=== PATIENT | female | born 1965 | race Caucasian/White ===

== ENCOUNTER 2019-09-26 07:42 | Emergency (ER) | payer BC, OTHER ==
--- NOTE | 2019-09-26 08:02 | EDM.PDOC ---
ED HPI GENERAL MEDICAL PROBLEM - General Chief Complaint: Headache Stated Complaint: VOMITING AND HEADACHE Time Seen by Provider: 09/26/19 07:53 Source of Information: Reports: Patient History Limitations: Reports: No Limitations - History of Present Illness Onset: Gradual Onset Date: 09/23/19 Duration: Day(s):, Getting Worse Location: Reports: Head, Generalized (nausea and vomitng. ) Quality: Reports: Ache (Lt frontal parietal headache. ) Severity: Moderate Improves with: Reports: None Worsens with: Reports: Movement ( question of vertigo symptoms. ) Context: Denies: Activity, Exercise, Lifting, Sick Contact, Trauma, Other Associated Symptoms: Reports: Diaphoresis, Headaches, Loss of Appetite, Malaise , Nausea/Vomiting (for the last 3 days. ). 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 did not take meds today. ) Headache Pain Score (Numeric/FACES): 8 - Related Data Allergies Allergy/AdvReac Type Severity Reaction Status Date / Time codeine Allergy Dizziness Verified 09/26/19 07:52 Home Meds: Home Meds ClonazePAM [KlonoPIN] 1 mg PO QPM 09/26/19 [History] Desvenlafaxine [Desvenlafaxine ER] 100 mg PO DAILY 09/26/19 [History] Levothyroxine [Synthroid] 50 mcg PO DAILY 09/26/19 [History] [place] Carbonate 300 mg PO BID 09/26/19 [History] Lurasidone HCl [Latuda] 80 mg PO DAILY 09/26/19 [History] Ondansetron [Zofran] 4 mg BUCCAL Q6H PRN #6 tab 09/26/19 [Rx] Prazosin HCl [Prazosin] 6 mg PO QPM 09/26/19 [History] Propranolol [Inderal] 20 mg PO DAILY 09/26/19 [History] Rosuvastatin [Crestor] 10 mg PO DAILY 09/26/19 [History] lamoTRIgine [Lamotrigine] 300 mg PO DAILY 09/26/19 [History] traZODone HCl [Trazodone HCl] 100 mg PO QPM 09/26/19 [History] Past Medical History Cardiovascular History: Reports: High Cholesterol, Hypertension Psychiatric History: Reports: Anxiety, Bipolar, Depression, Other (See Below) ( Insomnia) Endocrine/Metabolic History: Reports: Hypothyroidism (On supplementation.), Obesity/BMI 30+ Social & Family History - Living Situation & Occupation Living situation: Reports: Occupation: Employed ED ROS GENERAL - Review of Systems Review Of Systems: See Below Constitutional: Reports: Malaise, Weakness, Fatigue, Decreased Appetite. Denies : Fever, Chills, Weight Loss, Weight Gain HEENT: Reports: No Symptoms Respiratory: Reports: No Symptoms Cardiovascular: Reports: Blood Pressure Problem, Lightheadedness. Denies: Chest Pain, Claudication, Dyspnea on Exertion, Edema, Orthopnea, Palpitations Endocrine: Reports: Fatigue GI/Abdominal: Reports: Decreased Appetite, Nausea, Vomiting. Denies: Hematemesis (And vomiting of bilious material) : Reports: Other (It is darker than normal.) Musculoskeletal: Reports: Back Pain Skin: Reports: No Symptoms (Occasional problems with low back pain) Neurological: Reports: Dizziness, Headache, Difficulty Walking, Weakness (And reports that she seemed to be a little bit ataxic with walking this morning.). Denies: Confusion, Numbness, Paresthesia, Pre-Existing Deficit, Seizure, Syncope , Tingling, Tremors, Trouble Speaking Psychiatric: Reports: Anxiety, Depression. Denies: Confusion, Cravings, Hallucinations, Homicidal Ideation, Mood Lability, Suicidal Ideation Hematologic/Lymphatic: Reports: No Symptoms Immunologic: Reports: No Symptoms - Physical Exam Exam: See Below Exam Limited By: No Limitations General Appearance: Alert, WD/WN, No Apparent Distress, Other Eye Exam: Bilateral Eye: Normal Inspection, PERRL (No nystagmus.) Throat/Mouth: Normal Inspection, Normal Lips, Normal Teeth, Normal Oropharynx Head Exam: Atraumatic, Normocephalic Neck: Normal Inspection, Supple, Non-Tender, Full Range of Motion. No: Carotid Bruit, Lymphadenopathy (L), Lymphadenopathy (R) Respiratory/Chest: No Respiratory Distress, Lungs Clear, Normal Breath Sounds, Chest Non-Tender Cardiovascular: Normal Peripheral Pulses, Regular Rate, Rhythm, No Edema, No Gallop, No Murmur, No Rub GI/Abdominal: Normal Bowel Sounds, Soft, Non-Tender, No Organomegaly, No Abnormal Bruit, No Mass, Pelvis Stable, Other (Mildly obese.) Neuro Exam (Abbreviated): Alert, Oriented, CN II-XII Intact, Normal Cognition, Normal Reflexes, No Motor/Sensory Deficits DTR: 1+: Achilles (R), Achilles (L), 2+: Bicep (R), Bicep (L), Patella (R), Patella (L) Back Exam: Normal Inspection Extremities: Normal Inspection, Normal Range of Motion, Non-Tender, No Pedal Edema Psychiatric: Flat Affect Skin Exam: Warm, Dry, Intact, Normal Color, No Rash Course - Vital Signs Last Recorded V/S: Last Vital Signs Temp 36.3 C 09/26/19 07:48 Pulse 95 09/26/19 07:48 Resp 12 09/26/19 07:48 BP 152/67 H 09/26/19 07:48 Pulse Ox 100 09/26/19 07:48 - Orders/Labs/Meds Orders: Active Orders 24 hr Category Date Time Status LITHIUM [REF] Stat Lab 09/26/19 08:05 Received URINALYSIS W/MICROSCOPIC [UA W/MICROSCOPIC] [URIN] Stat Lab 09/26/19 09:50 Received Dextrose 5%-Lactated Ringers 1,000 ml Med 09/26/19 08:15 Active IV ASDIRECTED Ketorolac [Toradol] Med 09/26/19 10:00 Active 30 mg IVPUSH ONETIME Medication Orders Dextrose/Lactated Ringer's (Dextrose 5%-Lactated Ringers) 1,000 mls @ 999 mls/ hr IV ASDIRECTED LILLIAM Last Admin: 09/26/19 08:11 Dose: 999 mls/hr Ketorolac Tromethamine (Toradol) 30 mg IVPUSH ONETIME LILLIAM Last Admin: 09/26/19 09:59 Dose: 30 mg Labs: Laboratory Tests 09/26/19 09/26/19 09/26/19 Range/Units 08:05 08:05 08:05 WBC 8.01 (3.98-10.04) K/mm3 RBC 4.72 (3.98-5.22) M/mm3 Hgb 13.2 (11.2-15.7) gm/dl Hct 40.8 (34.1-44.9) % MCV 86.4 (79.4-94.8) fl MCH 28.0 (25.6-32.2) pg MCHC 32.4 (32.2-35.5) g/dl RDW Std Deviation 37.9 (36.4-46.3) fL Plt Count 323 (182-369) K/mm3 MPV 9.9 (9.4-12.3) fl Neut % (Auto) 66.0 (34.0-71.1) % Lymph % (Auto) 23.6 (19.3-51.7) % [place] % (Auto) 8.1 (4.7-12.5) % Eos % (Auto) 1.7 (0.7-5.8) Baso % (Auto) 0.5 (0.1-1.2) % Neut # (Auto) 5.28 (1.56-6.13) K/mm3 Lymph # (Auto) 1.89 (1.18-3.74) K/mm3 [place] # (Auto) 0.65 H (0.24-0.36) K/mm3 Eos # (Auto) 0.14 (0.04-0.36) K/mm3 Baso # (Auto) 0.04 (0.01-0.08) K/mm3 Sodium 141 (136-145) mEq/L Potassium 3.8 (3.5-5.1) mEq/L Chloride 104 (98-107) mEq/L Carbon Dioxide 28 (21-32) mEq/L Anion Gap 12.8 (5-15) BUN 11 (7-18) mg/dL Creatinine 0.9 (0.55-1.02) mg/dL Est Cr Clr Drug Dosing 59.11 mL/min Estimated GFR (MDRD) > 60 (>60) mL/min BUN/Creatinine Ratio 12.2 L (14-18) Glucose 116 H (74-106) mg/dL Calcium 10.6 H (8.5-10.1) mg/dL Magnesium 2.0 (1.8-2.4) mg/dl Total Bilirubin 0.6 (0.2-1.0) mg/dL AST 19 (15-37) U/L ALT 30 (14-59) U/L Alkaline Phosphatase 67 (46-116) U/L C-Reactive Protein 1.1 H* (<1.0) mg/dL Total Protein 7.9 (6.4-8.2) g/dl Albumin 3.8 (3.4-5.0) g/dl Globulin 4.1 gm/dL Albumin/Globulin Ratio 0.9 L (1-2) TSH 3rd Generation 0.010 L (0.358-3.74) uIU/mL Meds: Medications Generic Name Dose Route Start Last Admin Trade Name Freq PRN Reason Stop Dose Admin Dextrose/Lactated Ringer's 1,000 mls @ 999 mls/hr 09/26/19 08:15 09/26/19 08: 11 Dextrose 5%-Lactated Ringers IV 999 mls/hr ASDIRECTED LILLIAM Administration Ketorolac Tromethamine 30 mg 09/26/19 10:00 09/26/19 09:59 Toradol IVPUSH 30 mg ONETIME LILLIAM Administration Discontinued Medications Generic Name Dose Route Start Last Admin Trade Name Freq PRN Reason Stop Dose Admin Diphenhydramine HCl 25 mg 09/26/19 09:47 09/26/19 09:54 Benadryl IVPUSH 09/26/19 09:48 25 mg ONETIME ONE Administration Hydromorphone HCl 0.5 mg 09/26/19 08:05 09/26/19 08:19 Dilaudid IVPUSH 09/26/19 08:06 0.5 mg ONETIME ONE Administration Hydromorphone HCl 0.5 mg 09/26/19 09:01 09/26/19 09:24 Dilaudid IVPUSH 09/26/19 09:02 0.5 mg ONETIME ONE Administration Promethazine HCl 25 mg/ Sodium 51 mls @ 100 mls/hr 09/26/19 08:13 09/26/19 08 :34 Chloride IV 09/26/19 08:43 100 mls/hr ONETIME ONE Administration Lorazepam 0.5 mg 09/26/19 08:12 09/26/19 08:20 Ativan IVPUSH 09/26/19 08:13 0.5 mg ONETIME ONE Administration Ondansetron HCl 4 mg 09/26/19 10:38 09/26/19 10:41 Zofran IVPUSH 09/26/19 10:39 4 mg ONETIME ONE Administration Ondansetron HCl Confirm 09/26/19 10:40 09/26/19 10:48 Zofran Administered 09/26/19 10:41 Not Given Dose 4 mg .ROUTE .K-MED ONE - Radiology Interpretation Free Text/Narrative:: 54-year-old female presents to the ED with a left temporoparietal headache well localized to the same position for the last day. Has had nausea and vomiting intermittently for the last 3 days. No diarrhea. No fever or chills. No recent changes in any medications. Of note she is on lithium and reports that the dosage about a month ago was reduced from 900 mg a day to 600 mg daily. She takes as 300 mg twice daily. This would be an unlikely dose to cause any lithium toxicity. Headache started after the nausea vomiting. She has not been able to keep down anything for 2 days. Emesis is bilious without any hematemesis. She states the nausea is continuous. States there is been no recent changes in medications and they are the same for many weeks and months. She has no associated diarrhea. Has not taken any of her medications today. Headache is rated at 5 out of 10. Feels generally weak but I could not identify any ataxia. Plan D5 Ringer's lactate at open. We will give Phenergan 25 mg intravenously over 15 minutes. Dilaudid 0.5 mg IV for headache relief Ativan 0.5 mg to replace loss of clonazepam use. Labs to include a lithium level which will be a send out. She has an appointment to see her psychiatrist in [place] tomorrow. - Re-Assessments/Exams Free Text/Narrative Re-Assessment/Exam: 09/26/19 08:49 Hematology report reveals a normal white count at 8.01. 66% neutrophils on the auto differential. Hemoglobin is 13.2 with hematocrit of 40.8. Platelet count 323,000 09/26/19 09:00 Chemistry reveals sodium 141 with a potassium of 3.8. Chloride is 104 with a bicarb of 28. Anion gap is 12.8. BUN is 11 with a creatinine of 0.9. GFR is greater than 60. Glucose 116 with a calcium of 10.6 which is slightly elevated. Magnesium is 2.0. Liver function normal C-reactive protein 1.1. Patient is still complaining of headache rating it 4 out of 10. Will repeat Dilaudid 0.5 mg IV at this time. 09/26/19 09:48 patient reports nausea is somewhat better. She still has a headache left parietal head. Will try Toradol 30 mg IV since she is on low- dose lithium and is unlikely to have renal compromise. We will also use Benadryl 25 mg IV for further nausea relief. 09/26/19 10:33 serum TSH came back very low at 0.010 indicating significant hyperthyroidism. He is currently on 50 mcg of levothyroxine daily which will be discontinued. Suggest repeat blood work in 6 weeks time 09/26/19 10:33 parents in a good deal of nausea. I did discuss the findings of hyper thyroidism with her. It appears that she was likely started on low-dose levothyroxine when she was on higher dose of lithium which was probably suppressing thyroid function. My advice will be to discontinue the levothyroxine supplement completely and retest the TSH in 6 to 8 weeks time. She still having moderate nausea. Will give her Zofran 4 mg IV at this time. Get her some fluids to drink as well. 09/26/19 11:11 and is feeling better. She will therefore be discharged home in the care of her . Prescription will be written for Zofran 4 mg sublingually every 6 hours as needed and 6 tablets were provided. Departure - Departure Time of Disposition: 11:12 Disposition: Home, Self-Care 01 Condition: Fair Clinical Impression: Intractable nausea and vomiting, Hyperthyroidism Headache Qualifiers: Headache type: other headache syndrome Qualified Code(s): G44.89 - Other headache syndrome - Discharge Information *PRESCRIPTION DRUG MONITORING PROGRAM REVIEWED*: Not Applicable *COPY OF PRESCRIPTION DRUG MONITORING REPORT IN PATIENT EUGENIE: Not Applicable Prescriptions: Ondansetron [Zofran] 4 mg BUCCAL Q6H PRN #6 tab PRN Reason: nausea or vomiting Instructions: General Headache Without Cause, Nausea and Vomiting, Adult Referrals: Gómez Shah MD [Primary Care Provider] - Forms: ED Department Discharge Additional Instructions: Evaluation in the emergency room today in regards to recurrent intermittent nausea and vomiting for the last 3 days. Development of left parietal headache over the last 24 hours. Unable to keep down current medications due to the nausea and vomiting as well as limited oral intake of fluids and food. You were treated in the emergency room with a liter of intravenous fluids to provide rehydration. No major electrolyte imbalance was identified and lab work. Lab work did identify that you were what we call hyperthyroid due to current thyroid supplement that you are on. Suspect this was started when you were on the higher doses of lithium which was causing some underactive thyroid issues. At this time the levothyroxine medication needs to be discontinued completely. You need a repeat thyroid-stimulating hormone test which is a blood test in 6 to 8 weeks time. Of note you should start to feel better from a hyperthyroid state in approximately 7 to 14 days time as the levels slowly increase back to normal. Because of the nausea and vomiting is unclear. Lab testing not necessarily point is in any 1 direction as to a viral cause etc. It may well be medication related and it can be from hyperthyroidism. You were treated with Phenergan and down on this drawn in the emergency room for nausea relief. We received Dilaudid 0.5 mg x 2 doses and Toradol 30 mg for headache relief. May continue to use Zofran 4 mg under the tongue every 6 hours as needed for nausea relief so that you can keep down fluids and light diet until feeling better. Zofran tablet could be taken under the tongue at approximately 1630 hrs. today and every 6 hours as needed for nausea relief. Follow-up with psychiatry tomorrow as planned. Did send away your lithium level in your blood to be tested which should be available in 3 days time. It is unlikely to be significantly elevated as the dosage you are currently taking is quite low. Follow-up with personal care physician if problems persist. Sepsis Event Note - Evaluation Sepsis Screening Result: No Definite Risk - Focused Exam Vital Signs: Vital Signs Temp Pulse Resp BP Pulse Ox 09/26/19 07:48 36.3 C 95 12 152/67 H 100 Date Exam was Performed: 09/26/19 Time Exam was Performed: 11:03 - My Orders Last 24 Hours: My Active Orders 09/26/19 08:05 LITHIUM [REF] Stat 09/26/19 08:15 Dextrose 5%-Lactated Ringers 1,000 ml IV ASDIRECTED 09/26/19 09:50 URINALYSIS W/MICROSCOPIC [UA W/MICROSCOPIC] [URIN] Stat 09/26/19 10:00 Ketorolac [Toradol] 30 mg IVPUSH ONETIME - Assessment/Plan Last 24 Hours: My Active Orders 09/26/19 08:05 LITHIUM [REF] Stat 09/26/19 08:15 Dextrose 5%-Lactated Ringers 1,000 ml IV ASDIRECTED 09/26/19 09:50 URINALYSIS W/MICROSCOPIC [UA W/MICROSCOPIC] [URIN] Stat 09/26/19 10:00 Ketorolac [Toradol] 30 mg IVPUSH ONETIME
[2019-09-26] MEDS ORDERED: HYDROmorphone 0.5 MG/0.5 ML Syringe IVPUSH ONE ×2 (08:05→09:01)
[2019-09-26] MEDS ORDERED: LORazepam 2 MG/ML SDV IVPUSH ONE (08:12)
[2019-09-26] MEDS ORDERED: Promethazine 25 MG in Sodium Chloride 0.9% 50 ML IV ONE (08:13)
[2019-09-26] MEDS ORDERED: Dextrose 5%-Lactated Ringers 1,000 ML IV SCH (08:15)
[2019-09-26] MEDS ORDERED: diphenhydrAMINE 50 MG/ML SDV IVPUSH ONE (09:47)
[2019-09-26] MEDS ORDERED: Ketorolac 30 MG/ML SDV IVPUSH SCH (10:00)
[2019-09-26] MEDS ORDERED: Ondansetron 4 MG/2 ML SDV IVPUSH ONE (10:38)
[2019-09-26] MEDS ORDERED: Ondansetron 4 MG/2 ML SDV ONE (10:40)
== END 2019-09-26 11:46 | disposition home or self-care (01) ==
LOC: JD.ED 07:42
DX: G44.89 Other headache syndrome (principal); E05.90 Thyrotoxicosis, unspecified without thyrotoxic crisis or storm; I10 Essential (primary) hypertension; E78.00 Pure hypercholesterolemia, unspecified; F41.9 Anxiety disorder, unspecified; F31.9 Bipolar disorder, unspecified; E66.9 Obesity, unspecified; Z88.5 Allergy status to narcotic agent; Z68.37 Body mass index [BMI] 37.0-37.9, adult; Z79.899 Other long term (current) drug therapy
CPT/HCPCS: 36415; 80053; 80178; 81001; 83735; 84443; 85025; 86140; 96365; 96375; 96376; 99284; J1170; J1200; J1885; J2060; J2405; J2550; J7050; J7121